=== PATIENT | male | born 1985 | race Two or more races ===

== ENCOUNTER 2017-11-02 14:07 | Emergency (ER) | payer MEDICAID, OTHER ==
[~2017-11-02] VITALS: Ht 182.9 cm; Wt 81.6 kg
[~2017-11-02 14:07] MED LIST: CEPH-570 PO; FLUO20CA36 PO; PRED20TA PO; QUET100T PO
[2017-11-02 14:15] VITALS: BP 125/73
== END 2017-11-02 16:53 | disposition home or self-care (01) ==
LOC: ER 14:10
DX: S90.811A Abrasion, right foot, initial encounter (principal); E11.69 Type 2 diabetes mellitus with other specified complication; F32.9 Major depressive disorder, single episode, unspecified; F22 Delusional disorders; F17.200 Nicotine dependence, unspecified, uncomplicated; F15.10 Other stimulant abuse, uncomplicated; Z60.2 Problems related to living alone; X58.XXXA Exposure to other specified factors, initial encounter; Y93.89 Activity, other specified; Y92.89 Other specified places as the place of occurrence of the external cause; Y99.8 Other external cause status
CPT/HCPCS: 73610; 73630; 82962; 99284; A4606; Z7610

== ENCOUNTER 2018-10-10 19:12 | Emergency (ER) | payer OTHER ==
[~2018-10-10] VITALS: Ht 175.3 cm; Wt 81.6 kg
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
[2018-10-10 20:50] LABS: BASOPHILS # (AUTO) 0.1 /CMM (0.0-0.2); BASOPHILS % (AUTO) 0.7 % (0.0-2.0); EOSINOPHILS % (AUTO) 2.5 % (0.0-6.0); HEMATOCRIT 45 % (39-51); LYMPHOCYTES # (AUTO) 3.3 /CMM (0.8-4.8); LYMPHOCYTES % (AUTO) 38.3 % (20.0-44.0); MEAN CORPUSCULAR HGB CONC 36 g/dl (31.0-36.0); MEAN CORPUSCULAR VOLUME 94 fL (80-96); MONOCYTES # (AUTO) 0.7 /CMM (0.1-1.30); MONOCYTES % (AUTO) 7.7 % (2.0-12.0); NEUTROPHILS # (AUTO) 4.3 /CMM (1.8-8.9); NEUTROPHILS % (AUTO) 50.8 % (43.0-81.0); PLATELET COUNT (AUTO) 336 /CMM (150-450); RED BLOOD CELL COUNT(AUTO) 4.75 MIL/uL (4.5-6.0); WHITE BLOOD COUNT (AUTO) 8.5 K/uL (4.3-11.0)
[2018-10-10 21:08] LABS: CALCIUM, SERUM 8.3 mg/dL (8.5-10.1); CARBON DIOXIDE 30 mmol/L (21-32); CHLORIDE 102 mmol/L (98-107); CREATININE 1.1 mg/dL (0.6-1.3); GLUCOSE 188 mg/dL (74-106); POTASSIUM 4.2 mmol/L (3.5-5.1); SODIUM SERUM 136 mmol/L (136-145); UREA NITROGEN, BLOOD 8 mg/dL (7-18)
--- NOTE | 2018-10-10 21:09 | NUR ---
one to one sitter bedside with pt
[2018-10-10 21:11] LABS: ALANINE AMINOTRANSFERASE 41 U/L (12-78); ALBUMIN 3.5 g/dL (3.4-5.0); ALKALINE PHOSPHATASE 114 U/L (46-116); ASPARTATE AMINOTRANSFERASE 29 U/L (15-37); BILIRUBIN,TOTAL 0.3 mg/dL (0.2-1.0); SALICYLATE 3.1 mg/dL (2.8-20.0); TOTAL PROTEIN, SERUM 6.9 g/dL (6.4-8.2)
[2018-10-10 21:13] LABS: ACETAMINOPHEN < 2 ug/ml (10-30); ALCOHOL, BLOOD < 3 mg/dL (0-0)
[2018-10-10 22:31] LABS: APPEARANCE,URINE Clear (CLEAR); BILIRUBIN,URINE Negative (NEGATIVE); BLOOD, URINE Negative Ery/uL (NEGATIVE); COLOR,URINE Yellow (YELLOW); KETONES,URINE Negative (NEGATIVE); LEUKOCYTE ESTERASE ,URINE Negative (NEGATIVE); NITRITE, URINE Negative (NEGATIVE); PROTEIN,URINE Negative (NEGATIVE); UGLUCOSE 500 MG/DL mg/dL (NEGATIVE)
--- NOTE | 2018-10-10 22:32 | NUR ---
URINE SAMPLE SENT TO LAB
--- NOTE | 2018-10-10 23:13 | NUR ---
IRINEO BARNES PAGED FOR PSYCH EVAL.
[2018-10-10 23:19] LABS: BACTERIA,URINE Rare /HPF (None Seen); RBC,URINE 0-2 /HPF (0-2); SQUAMOUS EPITHELIAL CELL,UR Rare /HPF (None Seen); WBC,URINE 0-2 /HPF (0-3)
--- NOTE | 2018-10-10 23:47 | NUR ---
CRISIS GOOD HUMOR VENDOR BEDSIDE WITH PT
--- NOTE | 2018-10-10 23:47 | NUR ---
REPORT GIVEN TO JAMIE MEYER FOR DORA
--- NOTE | 2018-10-11 01:16 | NUR ---
Patient is resting comfortably in bed with eyes closed. Easily aroused. VSS
--- NOTE | 2018-10-11 01:45 | NUR ---
CALLED [facility] FOR TRANSPORTATION TO [facility]. ETA [id number]. TRIP NUMBER [id number]
[2018-10-11 01:51] VITALS: BP 134/84
--- NOTE | 2018-10-11 01:52 | NUR ---
REPORT GIVEN TO PAIGE BENSON FOR DORA.
--- NOTE | 2018-10-11 01:56 | NUR ---
PT COMPLAINING OF ACID REFLUX. PER VERBAL MD ORDER, WILL ADMINISTER MAALOX 30MG PO [phone]
[2018-10-11] MEDS ORDERED: MAG HYDROX/AL HYDROX/SIMETH 30 ML UDC ONE ×2 (01:59→02:45)
[2018-10-11] MEDS ORDERED: MAG HYDROX/AL HYDROX/SIMETH 30 ML UDC PO ONE (02:30)
--- NOTE | 2018-10-11 03:17 | NUR ---
REPORT GIVEN TO [facility] FOR DORA. PT BEING TRANSFERRED ONTO EMS GURNEY
--- NOTE | 2018-10-11 03:18 | NUR ---
Patient Tranfers to outside Facility Physician:BEATA Location:[facility]
== END 2018-10-11 03:21 ==
LOC: ER 19:14
DX: R45.851 Suicidal ideations (principal); E11.9 Type 2 diabetes mellitus without complications; F17.200 Nicotine dependence, unspecified, uncomplicated; Z60.2 Problems related to living alone; Z79.899 Other long term (current) drug therapy
CPT/HCPCS: 36415; 80048; 80076; 80305; 80307; 80329; 81001; 85025; 99285; G0480; 81000-TC